=== PATIENT | female | born 1990 ===

== ENCOUNTER 2017-03-28 12:49 | Emergency (ER) | payer MEDICAID, OTHER ==
[2017-03-28 13:04] VITALS: O2SAT 99
[2017-03-28 13:40] LABS: HEMOGLOBIN 13.4 g/dL (12.0-16.0); MEAN CELL VOLUME 90.5 fl (81.0-99.0); MEAN CORPUSCULAR HEMOGLOBIN 31.2 pg (27.0-31.0); MEAN CORPUSCULAR HGB CONC 34.5 g/dL (33.0-37.0); RBC 4.3 Mil/uL (3.80-5.20); RED CELL DISTRIBUTION WIDTH 13.9 % (11.5-14.5); WHITE BLOOD COUNT 8.5 K/uL (4.8-10.8)
[2017-03-28 13:58] LABS: BLOOD UREA NITROGEN 16 mg/dl (7-17); CALCIUM 9.3 mg/dL (8.4-10.2); GFR AFRICAN-AMERICAN > 60; GFR NON-AFRICAN AMERICAN > 60; MAGNESIUM 1.7 MG/DL (1.6-2.3)
--- NOTE | 2017-03-28 14:04 | ED PDOC ---
HPI: General Adult Time Seen by Provider: 03/28/17 13:10 Chief Complaint (Nursing): Weakness/Neurological Deficit Chief Complaint (Provider): Shakiness History Per: Patient History/Exam Limitations: no limitations Onset/Duration Of Symptoms: Days (x 1 week) Current Symptoms Are (Timing): Still Present Additional Complaint(s): 26 year old female who presents to the ED c/o sharking in her hands and arms, onset 1 week ago. Patient reports that she has been shaking for years, but this last week it has become really bad. She believes that shaking is worse in left than right. Also complained of headache for 3 days earlier this week but no longer has one. Denies vision changes, changes in speech, weakness or change in gait. PMD: [facility] Past Medical History Reviewed: Historical Data, Nursing Documentation, Vital Signs Vital Signs: Last Vital Signs Temp 98.2 F 03/28/17 15:37 Pulse 70 03/28/17 15:37 Resp 18 03/28/17 15:37 BP 104/74 03/28/17 15:37 Pulse Ox 99 03/28/17 15:37 - Medical History PMH: No Chronic Diseases Denies: Chronic Kidney Disease - Surgical History Surgical History: No Surg Hx - Family History Family History: States: Unknown Family Hx - Home Medications Home Medications: Ambulatory Orders Medication Instructions Recorded LORazepam [Ativan] 1 mg PO Q6 PRN #4 tab 03/28/17 - Allergies Allergies/Adverse Reactions: Allergies Allergy/AdvReac Type Severity Reaction Status Date / Time No Known Allergies Allergy Verified 03/28/17 13:00 Review of Systems ROS Statement: Except As Marked, All Systems Reviewed And Found Negative Constitutional: Positive for: Other (Shaking) Neurological: Negative for: Headache Physical Exam - Reviewed Nursing Documentation Reviewed: Yes Vital Signs Reviewed: Yes - Physical Exam Appears: Positive for: Non-toxic, No Acute Distress Head Exam: Positive for: ATRAUMATIC, NORMOCEPHALIC Skin: Positive for: Normal Color, Warm, Dry Eye Exam: Positive for: EOMI, Normal appearance, PERRL Neck: Positive for: Normal, Painless ROM, Supple Cardiovascular/Chest: Positive for: Regular Rate, Rhythm Respiratory: Positive for: CNT, Normal Breath Sounds Gastrointestinal/Abdominal: Positive for: Normal Exam, Soft Back: Positive for: Normal Inspection Extremity: Positive for: Normal ROM Neurologic/Psych: Positive for: Alert, customer success intern II-XII (intact), Oriented, Motor/ Sensory Deficits (Subjective decrease in sensation on left arm. 5/5 MS AE. Lower extremities equal in sensation. Mild hand tremors of hands.), Gait (able to walk straight wiht no hytaxia ), Other - Laboratory Results Result Diagrams: 03/28/17 13:35 03/28/17 13:35 - ECG O2 Sat by Pulse Oximetry: 99 (RA) Pulse Ox Interpretation: Normal Medical Decision Making Medical Decision Making: Time: 13:22 Impression: seizure vs intracranial mass vs anxiety tremors Initial Plan: --CT head --BMP --Magnesium --CBC --Ativan 1 mg IVP PROCEDURE: CT HEAD WITHOUT CONTRAST. IMPRESSION: No acute intracranial pathology identified. Tremors have resolved with Ativan. Still has no headache. Instructed to make sure follow up with [facility] and neurologist, Dr. Brownlee. I told her that she has to be worked up for Multiple Scleroris or any other possible neurological disorder that can be causing this. She requested some ativan as needed and she promises to follow up with the neurologist. She wants to go to the [place] clinic versus who she has no for PMD. I gave her instructions. I also advised her to return to the ED if symptoms worsen or any other concerns. Scribe Attestation: Documented by Soha Green, acting as a scribe for Arnoldo Muñoz Scribe Attestation: All medical record entries made by the Scribe were at my direction and personally dictated by me. I have reviewed the chart and agree that the record accurately reflects my personal performance of the history, physical exam, medical decision making, and the department course for this patient. I have also personally directed, reviewed, and agree with the discharge instructions and disposition. Disposition - Clinical Impression Clinical Impression: Tremors of nervous system - Patient ED Disposition Is Patient to be Admitted: No - Disposition Referrals: [facility] [Outside] Johnny Brownlee MD [Medical Doctor] - Disposition: Routine/Home Disposition Time: 15:30 Condition: IMPROVED Additional Instructions: Ms Costa, thank you for letting us take care of you today. Your provider was Dr. Vasquez. You were treated for Tremors. The emergency medical care you received today was directed at your acute symptoms. If you were prescribed any medication, please fill it and take as directed. It may take several days for your symptoms to resolve. Return to the Emergency Department if your symptoms worsen, do not improve, or if you have any other problems. Please contact your doctor or call one of the physicians/clinics you have been referred to that are listed on the Patient Visit Information form that is included in your discharge packet. Bring any paperwork you were given at discharge with you along with any medications you are taking to your follow up visit. Our treatment cannot replace ongoing medical care by a primary care provider (PCP) outside of the emergency department. Thank you for allowing the [facility] team to be part of your care today. If you had an X-Ray or CT scan: A Radiologist will review the ED reading if any change in treatment is needed we will contact you. If you had a blood, urine, or wound culture: It will take several days for the results, if any change in treatment is needed we will contact you. If you had an STI test: It will take 48 hours for the results. Please call after 1 week if you have not heard back. Prescriptions: LORazepam [Ativan] 1 mg PO Q6 PRN #4 tab PRN Reason: Anxiety Instructions: Tremors (ED) Forms: [employer] (Ukrainian), [facility] ED School/Work Excuse Print Language: AZERI
--- NOTE | 2017-03-28 14:54 | CT ---
PROCEDURE: CT HEAD WITHOUT CONTRAST. HISTORY: hand tremors left > right x 1 week, headache COMPARISON: None available. TECHNIQUE: Axial computed tomography images were obtained through the head/brain without intravenous contrast. Radiation dose: Total exam DLP = 775.11 mGy-cm. This CT exam was performed using one or more of the following dose reduction techniques: Automated exposure control, adjustment of the mA and/or kV according to patient size, and/or use of iterative reconstruction technique. FINDINGS: HEMORRHAGE: No intracranial hemorrhage. BRAIN: No mass effect or edema. No atrophy or chronic microvascular ischemic changes.Please note that MRI with diffusion imaging is more sensitive in the detection of acute ischemic event. VENTRICLES: No hydrocephalus. CALVARIUM: Unremarkable. PARANASAL SINUSES: Unremarkable as visualized. No significant inflammatory changes. MASTOID AIR CELLS: Unremarkable as visualized. No inflammatory changes. OTHER FINDINGS: None. IMPRESSION: No acute intracranial pathology identified.
[2017-03-28 15:37] VITALS: PULSE 70; RESP 18; TEMP 98.2
[2017-03-28 15:47] VITALS: BP 104/74
== END 2017-03-28 15:47 | disposition home or self-care (01) ==
LOC: H.ER 12:49
DX: R25.1 Tremor, unspecified (principal); F41.9 Anxiety disorder, unspecified
CPT/HCPCS: 70450; 80048; 81025; 83735; 85027; 96374; 99282; J2060

== ENCOUNTER 2017-06-02 09:59 | Emergency (ER) | payer SELFPAY ==
[2017-06-02 10:21] VITALS: BP 123/77; PULSE 97; RESP 18; TEMP 98; O2SAT 97
--- NOTE | 2017-06-02 10:40 | ED PDOC ---
HPI: General Adult Time Seen by Provider: 06/02/17 10:39 Chief Complaint (Nursing): Cough, Cold, Congestion Chief Complaint (Provider): cough History Per: Patient Additional Complaint(s): 26-year-old female presents with cough for 1 week. Patient states she had low- grade temperature yesterday. She woke up today with worsening cough despite taking cough medication for the past 2 days prompting ED visit. Patient denies any chest pain or shortness of breath. PMD: Clinic Past Medical History Reviewed: Historical Data, Nursing Documentation, Vital Signs Vital Signs: Last Vital Signs Temp 98 F 06/02/17 10:18 Pulse 97 H 06/02/17 10:18 Resp 18 06/02/17 10:18 BP 123/77 06/02/17 10:18 Pulse Ox 97 06/02/17 10:58 - Medical History PMH: No Chronic Diseases - Surgical History Surgical History: (x 2) Other surgeries: Abdominoplasty - Family History Family History: States: No Known Family Hx - Living Arrangements Living Arrangements: With Family - Social History Current smoker - smoking cessation education provided: No Alcohol: None Drugs: Denies - Home Medications Home Medications: Ambulatory Orders Medication Instructions Recorded LORazepam [Ativan] 1 mg PO Q6 PRN #4 tab 03/28/17 Albuterol HFA [Ventolin HFA 90 1 puff IH ASDIR #1 unit 06/02/17 mcg/actuation (8 g)] Azithromycin [Zithromax] 250 mg PO DAILY #6 tab 06/02/17 Benzonatate 200 mg PO TID PRN #20 capsule 06/02/17 - Allergies Allergies/Adverse Reactions: Allergies Allergy/AdvReac Type Severity Reaction Status Date / Time No Known Allergies Allergy Verified 06/02/17 10:18 Review of Systems ROS Statement: Except As Marked, All Systems Reviewed And Found Negative Constitutional: Positive for: Fever (low grade). Negative for: Chills, Weakness Cardiovascular: Negative for: Chest Pain Respiratory: Positive for: Cough Gastrointestinal: Negative for: Nausea, Vomiting, Abdominal Pain Genitourinary Female: Negative for: Dysuria Neurological: Negative for: Headache, Dizziness Physical Exam - Reviewed Nursing Documentation Reviewed: Yes Vital Signs Reviewed: Yes - Physical Exam Appears: Positive for: Well, Non-toxic, No Acute Distress Skin: Negative for: Rash Eye Exam: Positive for: Normal appearance Cardiovascular/Chest: Positive for: Regular Rate, Rhythm Respiratory: Positive for: Decreased Breath Sounds. Negative for: Wheezing, Respiratory Distress Gastrointestinal/Abdominal: Positive for: Soft. Negative for: Tenderness Neurologic/Psych: Positive for: Alert, Oriented - Laboratory Results Urine POC: Negative - ECG O2 Sat by Pulse Oximetry: 97 Pulse Ox Interpretation: Normal - Other Rad CXR X-Ray: Interpreted by Me, Viewed By Me X-Ray Interpretation: no acute finding Medical Decision Making Medical Decision Makin26 year old with cough Plan: test CXR Motrin Patient was given prescriptions for Zithromax, Ventolin inhaler and Tessalon Perles. Advised Motrin for pain as needed and PMD/clinic follow-up in 2-3 days. Disposition - Clinical Impression Clinical Impression: Upper respiratory infection, Cough - Patient ED Disposition Is Patient to be Admitted: No Counseled Patient/Family Regarding: Studies Performed, Diagnosis, Need For Followup, Rx Given - Disposition Referrals: [facility] [Outside] Disposition: Routine/Home Disposition Time: 10:57 Condition: STABLE Additional Instructions: Take prescription meds as directed. [id number] Motrin for pain as needed. Follow up with clinic or primary doctor in 2-3 days. Prescriptions: Albuterol HFA [Ventolin HFA 90 mcg/actuation (8 g)] 1 puff IH ASDIR #1 unit Azithromycin [Zithromax] 250 mg PO DAILY #6 tab Benzonatate 200 mg PO TID PRN #20 capsule PRN Reason: Cough Instructions: Cough in Adults, Bacterial Upper Respiratory Infection, Adult Forms: [employer] (Korean)
--- NOTE | 2017-06-02 11:50 | RAD ---
HISTORY: cough COMPARISON: No prior. TECHNIQUE: Chest PA and lateral FINDINGS: LUNGS: No active pulmonary disease. PLEURA: No significant pleural effusion identified. No pneumothorax apparent. CARDIOVASCULAR: Normal. OSSEOUS STRUCTURES: No significant abnormalities. VISUALIZED UPPER ABDOMEN: Normal. OTHER FINDINGS: None. IMPRESSION: No active disease.
== END 2017-06-02 11:51 | disposition home or self-care (01) ==
LOC: H.ER 09:59
DX: J06.9 Acute upper respiratory infection, unspecified (principal)